=== PATIENT | female | born 1945 | race Caucasian/White ===

== ENCOUNTER 2016-06-09 11:28 | Day surgery (SDC) | payer BC ==
--- NOTE | ~2016-06-09 | EGD ---
EGD REPORT [facility] [address] [address] NAME: ARMANDO PAUL : [birth year] STATUS : REG [facility] PAT#: [id number] AGE: 71 ADM/REG DATE : 06/09/16 MR#: [id number] REPORT SERV DATE: 06/09/16 DICTATED BY: ALEXI PRETTY DATE: 06/09/16 REPORT STATUS : Draft TRANSCRIBED BY: [facility] DATE: 06/09/16 [facility] Patient Name: Armando Paul Date of : 1945 Attending MD: ALEXI PRETTY MD Procedure Date No Time: 06/09/2016 Procedure: Colonoscopy Indications: Colon cancer screening in patient at increased risk: Family history of colon polyps, Last colonoscopy: 2010 Referring MD: LIANE SANTANA Medicines: See the Anesthesia note for documentation of the administered medications Complications: No immediate complications. Procedure: Pre-Anesthesia Assessment: - ASA Grade Assessment: II - A patient with mild systemic disease. After I obtained informed consent, the scope was passed under direct vision. Throughout the procedure, the patient's blood pressure, pulse, and oxygen saturations were monitored continuously. The PCF H190L [id number] was introduced through the anus and advanced to the cecum, identified by appendiceal orifice and ileocecal valve. The GIF H190 [id number] was introduced through the and advanced to. The colonoscopy was technically difficult and complex due to Fixed sigmoid colon. Successful completion of the procedure was aided by withdrawing the scope and replacing with the adult upper endoscope. The patient tolerated the procedure well. The quality of the bowel preparation was adequate. Findings: The perianal and digital rectal examinations were normal. Diverticula were found in the sigmoid colon and in the ascending colon. Internal hemorrhoids were found during retroflexion and were small. Adhesions in sigmoid colon Impression: - Diverticulosis in the sigmoid colon and in the ascending colon. - Internal hemorrhoids. - Adhesions in sigmoid colon Recommendation: - Patient has a contact number available for emergencies. The signs and symptoms of potential delayed complications were discussed with the patient. Return to normal activities tomorrow. Written discharge EGD REPORT [address] [address] NAME: ARMANDO PAUL : [birth year] STATUS : REG [facility] PAT#: [id number] AGE: 71 ADM/REG DATE : 06/09/16 MR#: [id number] REPORT SERV DATE: 06/09/16 DICTATED BY: ALEXI PRETTY DATE: 06/09/16 REPORT STATUS : Draft TRANSCRIBED BY: [employer] DATE: 06/09/16 instructions were provided to the patient. - Regular diet. - Continue present medications. - Repeat colonoscopy in 5 years for screening purposes. Procedure Code(s): --- Professional --- 14897, Colonoscopy, flexible, proximal to splenic flexure; diagnostic, with or without collection of specimen(s) by brushing or washing, with or without colon decompression (separate procedure) Diagnosis Code(s): --- Professional --- K64.8, Other hemorrhoids K57.30, Diverticulosis of large intestine without perforation or abscess without bleeding Z12.11, Encounter for screening for malignant neoplasm of colon Z83.71, Family history of colonic polyps CPT copyright 2013 [employer]. All rights reserved. The codes documented in this report are preliminary and upon assistant professor of economics review may be revised to meet current compliance requirements. Alexi Pretty MD ALEXI PRETTY MD 06/09/2016 2:13 PM This report has been signed electronically. Number of Addenda: 0 Note Initiated On: 06/09/2016 1:38 PM Scope Withdrawal Time 0 hours 6 minutes 18 seconds [id number] [place] [id number]
[~2016-06-09 11:28] MED LIST: CELEBREX50 MG PO; GLUCPH PO; JUICE PLUS; KAPIDEX60 MG PO
== END 2016-06-09 23:59 | disposition home or self-care (01) ==
LOC: DMU 11:28
PROVIDERS: Internal Medicine Gastroenterology
PROC: 0DJD8ZZ Inspection of Lower Intestinal Tract, Via Natural or Artificial Opening Endoscopic (ICD-10-PCS; principal; 2016-06-09 12:30)
DX: Z12.11 Encounter for screening for malignant neoplasm of colon (principal); K57.30 Diverticulosis of large intestine without perforation or abscess without bleeding; K64.8 Other hemorrhoids; Z83.71 Family history of colonic polyps; G47.33 Obstructive sleep apnea (adult) (pediatric); Z98.41 Cataract extraction status, right eye; Z98.42 Cataract extraction status, left eye; Z96.1 Presence of intraocular lens; M19.90 Unspecified osteoarthritis, unspecified site; Z90.710 Acquired absence of both cervix and uterus; E88.81 Metabolic syndrome and other insulin resistance; Z90.722 Acquired absence of ovaries, bilateral; Z90.79 Acquired absence of other genital organ(s); Z90.89 Acquired absence of other organs; Z88.2 Allergy status to sulfonamides; Z79.4 Long term (current) use of insulin; Z79.899 Other long term (current) drug therapy
CPT/HCPCS: 82962